=== PATIENT | female | born 1950 ===

== ENCOUNTER 2016-11-03 13:22 | Observation (INO) | payer MEDICARE, OTHER ==
[2016-11-03 13:25] VITALS: BMI 36.7
[2016-11-03 15:32] LABS: BASO # 0.1 K/uL (0.0-0.2); BASO % 0.7 % (0.0-2.0); HEMATOCRIT 39.8 % (34.0-47.0); LYMPH # 3.4 K/uL (1.0-4.3); LYMPH % 27.8 % (20.0-40.0); MEAN CELL VOLUME 78.8 fL (81.0-99.0); MEAN CORPUSCULAR HEMOGLOBIN 27.4 pg (27.0-31.0); MEAN CORPUSCULAR HGB CONC 34.8 g/dL (33.0-37.0); MEAN PLATELET VOLUME 7.8 fL (7.2-11.7); MONO # 0.9 K/uL (0.0-0.8); MONO % 7.2 % (0.0-10.0); RED CELL DISTRIBUTION WIDTH 13.9 % (11.5-14.5); WHITE BLOOD COUNT 12.2 K/uL (4.8-10.8)
[2016-11-03 15:40] LABS: INR 0.9
[2016-11-03 15:43] LABS: CHLORIDE 104 mmol/L (98-107); SODIUM 140 mmol/L (132-148)
[2016-11-03 15:44] LABS: POTASSIUM 4.3 mmol/L (3.6-5.2)
[2016-11-03 15:46] LABS: ALB/GLOB RATIO 1.4 (1.0-2.1); ALKALINE PHOSPHATASE 68 U/L (38-126); AST/SGOT 27 U/L (14-36); BILIRUBIN,TOTAL 0.5 mg/dL (0.2-1.3); CARBON DIOXIDE 23 mmol/L (22-30); GFR AFRICAN-AMERICAN > 60; TOTAL PROTEIN 7.1 g/dL (6.3-8.3)
[2016-11-03 15:47] LABS: ALT/SGPT 27 U/L (9-52); BLOOD UREA NITROGEN 14 mg/dL (7-17); CALCIUM 8.9 mg/dl (8.6-10.4); GLUCOSE,RANDOM 141 mg/dL (65-105)
--- NOTE | 2016-11-03 16:07 | RAD ---
HISTORY: chest pain COMPARISON: Chest x-ray performed 02/24/16 TECHNIQUE: Chest, one view. FINDINGS: Examination limited by habitus and hypoinflation. LUNGS: Mild interstitial prominence may reflect vascular crowding due to hypoinflation versus mild pulmonary venous congestion. Please note that chest x-ray has limited sensitivity for the detection of pulmonary masses. PLEURA: No significant pleural effusion identified. No definite pneumothorax . CARDIOVASCULAR: Borderline cardiomegaly. OSSEOUS STRUCTURES: No acute osseous abnormality identified. VISUALIZED UPPER ABDOMEN: Unremarkable. OTHER FINDINGS: None. IMPRESSION: Mild interstitial prominence may reflect vascular crowding due to hypoinflation versus mild pulmonary venous congestion. Correlate clinically.
--- NOTE | 2016-11-03 16:47 | C.PDOC ---
History Of Present Illness Pt c/o chest pain radiating to LUE. Time Seen by Provider: 11/03/16 14:15 Chief Complaint (Nursing): Chest Pain History Per: Patient, EMS Onset/Duration Of Symptoms: Hrs (last night/this morning) Current Symptoms Are (Timing): Better Severity: Moderate Quality: Pressure, "Pain" Associated Symptoms: Dyspnea Modifying Factors: Other Indicated Below Alleviating Factors: None Additional History Per: Prior Records Past Medical History Reviewed: Historical Data, Nursing Documentation, Vital Signs Vital Signs: Last Vital Signs Temp 98.2 F 11/03/16 14:56 Pulse 74 11/03/16 14:56 Resp 13 11/03/16 14:56 BP 132/79 11/03/16 16:39 Pulse Ox 95 11/03/16 14:56 - Medical History PMH: Asthma (DOESN'T USE INHALER MUCH), Diabetes, Gastritis, Hepatitis, HTN, Hypercholesterolemia, Hyperlipidemia, Hypothyroidism (NO MEDS), Migraine, Osteoporosis, Schizophrenia, Seizures (1X ) Surgical History: Appendectomy, Endoscopy - [facility] Procedures GROUP PSYCHOTHERAPY (07/02/15) INDIVIDUAL PSYCHOTHERAPY, COGNITIVE-BEHAVIORAL (07/02/15) Family History: States: Unknown Family Hx - Social History Hx Tobacco Use: No Hx Alcohol Use: No Hx Substance Use: No - Immunization History Hx Tetanus Toxoid Vaccination: No Hx Influenza Vaccination: No Hx Pneumococcal Vaccination: No Review Of Systems Except As Marked, All Systems Reviewed And Found Negative. Constitutional: Negative for: Fever Cardiovascular: Positive for: Chest Pain, Light Headedness Respiratory: Positive for: Shortness of Breath. Negative for: Hemoptysis Gastrointestinal: Negative for: Vomiting, Abdominal Pain Musculoskeletal: Positive for: Back Pain. Negative for: Neck Pain, Leg Pain Skin: Negative for: Rash Neurological: Negative for: Weakness, Numbness Physical Exam - Physical Exam Appears: Non-toxic, No Acute Distress Skin: Normal Color, Warm, Dry, No Rash Head: Atraumatic, Normacephalic Eye(s): bilateral: Normal Inspection, PERRL, EOMI Neck: Normal ROM, Supple Chest: Symmetrical, No Deformity, No Tenderness Cardiovascular: Rhythm Regular Respiratory: Normal Breath Sounds, No Accessory Muscle Use Gastrointestinal/Abdominal: Soft, No Tenderness Back: No CVA Tenderness Extremity: Normal ROM, No Calf Tenderness Neurological/Psych: Oriented x3, Normal Motor, Normal Sensation ED Course And Treatment - Laboratory Results Result Diagrams: 11/03/16 15:24 11/03/16 15:24 Lab Interpretation: No Acute Changes ECG: Interpreted By Me, Viewed By Me ECG Rhythm: Sinus Rhythm, ST/T Changes (T wave inversions in anterolateral leads.), Nonspecific Changes ECG Interpretation: Abnormal Rate From EC O2 Sat by Pulse Oximetry: 95 Pulse Ox Interpretation: Normal - Radiology CXR: Viewed By Me, Read By Radiologist CXR Interpretation: Yes: No Acute Disease - Physician Consult Information Physician Contacted: Goyo Yost (Card.) Outcome Of Conversation: He will consult. Progress - Interventions Interventions:: Observation, Oxygen - Medications Administered Oral: Aspirin (Pt took at home just BOOKS BINDER) - Data Reviewed Data Reviewed: Lab, Diagnostic imaging, EKG, Old records - Patient Status Patient status: Mostly improved - Continuity of Care Discussed patient case with:: Patient, ED Nurse, PMD Discussed pt. case with ada accommodation consultant/specialty: Cardiology Disposition Discussed With : Diamond Garcia Comment: He accepted pt on his service and wants Dr. Graff to be consulted. Doctor Will See Patient In The: Hospital Counseled Patient/Family Regarding: Studies Performed, Diagnosis - Disposition Disposition: HOSPITALIZED Disposition Time: 16:53 Condition: FAIR - Clinical Impression Clinical Impression: Chest pain, Acute coronary syndrome
[2016-11-03] MEDS: Enoxaparin 60 mg Syringe SC SCH (21:35)
[2016-11-03] MEDS: (Novolin R) Insulin Human Regular 100 units/ml vial SC SCH (22:05)
[2016-11-04 02:02] VITALS: RESP 20
[2016-11-04] MEDS: (Novolin R) Insulin Human Regular 100 units/ml vial SC SCH ×4 (07:23→21:33)
--- NOTE | 2016-11-04 07:33 | CON ---
DATE: REASON FOR CONSULTATION: Chest pain. HISTORY OF PRESENT ILLNESS: The patient is 66 years old female who has a history of hypertension, diabetes mellitus, and history of schizophrenia. The patient stated to me that she had few heart attacks with two cardiac catheterization, one in [facility] and one in [facility] last year and she had been on procedure; however, my review of old admissions from this year and last year reveals no cardiac procedure or intervention and not even a cardiology consult. The patient presents because of chest tightness. The patient denies any associated diaphoresis or shortness of breath. SOCIAL HISTORY: The patient is nonsmoker and nondrinker. MEDICATIONS: The patient was placed by me on aspirin 81 mg once a day, Crestor at 20 mg once a day, Lopressor 25 mg twice a day, therapeutic subcutaneous Lovenox at 60 mg twice a day. REVIEW OF SYSTEMS: No fever or chills. No vomiting. No diarrhea. No dizziness or syncope. No suicidal ideation. PHYSICAL EXAMINATION: GENERAL: The patient is an elderly female who does not appear to be in any distress. VITAL SIGNS: Blood pressure 118/69, heart rate 91, temperature 98.5 and respiration 20. HEENT: Normocephalic. NECK: No JVD. CHEST: Clear. HEART: S1 and S2 regular. ABDOMEN: Soft. EXTREMITIES: No edema. LABORATORY DATA: CBC: WBC is 12.2, hemoglobin 16.9, hematocrit 39.8, and platelet count 197,000. Chemistry: Sodium 140, potassium 4.3, chloride 104, CO2 23, glucose 141, BUN 14 and creatinine 0.7. One set of troponin is negative. PT, PTT and INR are within normal limit. EKG revealed a sinus rhythm with anterior ischemic T-wave changes, slightly worsened when compared to previous EKG's from 2016. Chest x-ray revealed cardiomegaly with mild CHF. ASSESSMENT: 1. Chest pain rule out myocardial infarction. 2. Rule out pulmonary infarction. 3. Hypertension and diabetes mellitus. 4. Questionable coronary artery disease with questionable coronary intervention in the past. 5. Radiographic evidence of congestive heart failure on the chest x-ray. RECOMMENDATIONS: Continue aspirin 81 mg once a day, Crestor 20 mg once a day, Lopressor 25 mg once a day, Lovenox of 60 mg subcutaneous twice a day. Monitor with EKGs and serial cardiac enzymes, obtain an echocardiogram, serum D-dimer and I will administer one dose of Lasix 40 mg IV push now. Goyo Yost MD
[2016-11-04] MEDS: Enoxaparin 60 mg Syringe SC SCH (09:42)
[2016-11-04] MEDS: Pantoprazole 40 mg EC Tab PO SCH (09:42)
--- NOTE | 2016-11-04 18:08 | CARD ---
APPROVED REPORT EXAM: Two-dimensional and M-mode echocardiogram with Doppler and color Doppler. Other Information Quality : Technically LimitedRhythm : NSR INDICATION Chest Pain RISK FACTORS Hypertension Diabetes 2D DIMENSIONS IVSd1.1 (0.7-1.1cm)LVDd5.2 (3.9-5.9cm) PWd1.0 (0.7-1.1cm)LVDs4.0 (2.5-4.0cm) FS (%) 22.4 %LVEF (%)44.9 (>50%) M-Mode DIMENSIONS RVDd2.74 (2.1-3.2cm)Left Atrium (MM)3.71 (2.5-4.0cm) IVSd1.18 (0.7-1.1cm)Aortic Root3.20 (2.2-3.7cm) LVDd4.38 (4.0-5.6cm)Aortic Cusp Exc.2.50 (1.5-2.0cm) PWd1.20 (0.7-1.1cm)FS (%) 44 % LVDs2.46 (2.0-3.8cm)LVEF (%)75 (>50%) Mitral Valve MV E Tujthpwl45.8cm/sMV A Eutwisxe00.9cm/sE/A ratio1.0 TDI E/Lateral E'0.0E/Medial E'0.0 Tricuspid Valve TR Peak Osgeqril74nj/sTR Peak Gr.5mxNzQAOR4jhZj LEFT VENTRICLE The left ventricle is normal size. There is normal left ventricular wall thickness. The left ventricular systolic function is normal. The left ventricular ejection fraction is within the normal range. There is normal LV segmental wall motion. The left ventricular diastolic function is normal. RIGHT VENTRICLE The right ventricle is normal size. The right ventricular systolic function is normal. ATRIA The left atrium size is normal. The right atrium size is normal. AORTIC VALVE The aortic valve is normal in structure. No aortic regurgitation is present. MITRAL VALVE The mitral valve is normal in structure. There is no mitral valve regurgitation noted. TRICUSPID VALVE The tricuspid valve is normal in structure. PULMONIC VALVE The pulmonic valve is not well visualized. GREAT VESSELS The aortic root is normal in size. The IVC was not visualized. PERICARDIAL EFFUSION There is no pericardial effusion. <Conclusion> TECHNICALLY DIFFICULT STUDY DUE TO POOR ACOUSTIC WINDOWS Normal bi-ventricular function. no gross valvular abnormality or pericardial effusiion.
--- NOTE | 2016-11-04 18:58 | PN ---
SUBJECTIVE: The patient denied any chest pain. She is ambulating with physical therapy. PHYSICAL EXAMINATION VITAL SIGNS: Blood pressure 128/73, heart rate 64, temperature 98.1 and respiration 20. HEENT: Normocephalic. CHEST: Clear. HEART: S1 and S2 regular. EXTREMITIES: No edema. LABORATORY DATA: A total of three troponins are within normal limit. ASSESSMENT AND PLAN: 1. Chest pain, myocardial infarction is ruled out. 2. Uncontrolled diabetes mellitus. 3. Depression. CONDITIONS: Continue aspirin 81 mg once a day, Lopressor 25 mg once a day, change Lovenox to 50 mg once a day, continue Seroquel. D-dimer study are within normal limits. I will review the echocardiograph study that was performed today. Goyo Yost MD
--- NOTE | 2016-11-04 23:59 | HP ---
HISTORY OF PRESENT ILLNESS: The patient is a 66 years old female with history of multiple medical problems, presented to the emergency room with chest pain which is retrosternal and pressure like. The patient was evaluated in the emergency room and admitted for further management. The patient denied to have any previous similar symptoms. Pain happened while the patient was at rest. Pain was not associated with any shortness of breath or palpitation or any other cardiac symptoms. OTHER REVIEW OF SYSTEMS: Negative. ALLERGIES: THE PATIENT HAS ALLERGY TO PENICILLIN. PAST MEDICAL HISTORY: Hypertension, type 2 diabetes mellitus, and hypercholesterolemia. SOCIAL HISTORY: No history of smoking, EtOH, or substance abuse. FAMILY HISTORY: Noncontributory. HOME MEDICATIONS: Seroquel 100 mg at bedtime and 25 mg in the morning, Relafen 500 mg twice a day, simvastatin 20 mg daily, carvedilol 6.25 mg twice a day, omeprazole 40 mg daily, aspirin 81 mg daily, and metformin 850 mg twice a day. PHYSICAL EXAMINATION: GENERAL: The patient is in bed, comfortable, not in any cardiopulmonary distress at the time of this examination. VITAL SIGNS: Blood pressure 128/73, temperature 98.1, respiratory rate 20, and pulse 64. HEENT: Pupils equal and reactive to light. Normal appearing mucosa of the conjunctivae, oropharynx, and nasal membrane mucosa. NECK: Supple. No JVD. No carotid bruit. No lymph node. No thyromegaly. CHEST AND LUNGS: Bilateral symmetrical expansion. Good air exchange. No rales. No rhonchi. CARDIOVASCULAR SYSTEM: PMI not localized. S1 and S2. No additional sounds. ABDOMEN: Normoactive bowel sounds. No tenderness. No organomegaly. No masses. EXTREMITIES: No cyanosis. No clubbing. No edema. CENTRAL NERVOUS SYSTEM: Alert, awake, oriented x3. No neurological deficits could be appreciated. ASSESSMENT: 1. Chest pain, myocardial infarction is ruled out by negative cardiac enzymes. 2. Type 2 diabetes mellitus with hyperglycemia. 3. History of bipolar disorder. PLAN: The patient was for echocardiogram and cardiology consultation and will follow the recommendations. Resume the patient's home medications. Accu-Checks with insulin coverage as needed. Diamond Garcia MD [facility] # [id number]
[2016-11-05] MEDS: (Novolin R) Insulin Human Regular 100 units/ml vial SC SCH ×4 (07:19→22:19)
[2016-11-05] MEDS: Pantoprazole 40 mg EC Tab PO SCH (09:12)
[2016-11-05] MEDS: Enoxaparin 30 mg Syringe SC SCH (09:12)
--- NOTE | 2016-11-05 17:41 | CP.PCM.PN ---
Subjective - Date & Time of Evaluation Date of Evaluation: 11/05/16 Time of Evaluation: 17:40 - Subjective Subjective: DISCUSSED PLAN WITH DR. RODRIGUEZ; PT CLEARED FOR D/C CARDIAC LACEY. FURTHER TESTING TO BE DONE ON OUTPATIENT BASIS PER DR. RODRIGUEZ. PT TO F/U WITH HIM IN THE OFFICE WITHIN [address] PARK MADE AWARE OF CARDIAC CLEARANCE AND OK TO D/C. PT WOULD LIKE TO SPEAK W DR. PARK BEFORE SHE IS D/C FROM HOSPITAL. I NOTIFIED Nikolai PARK OF THIS. ALL D/C PAPERWORK AND MED REC DONE IN PREPARATION FOR PT TO GO HOME. NO FURTHER ORDERS. Objective - Vital Signs/Intake and Output Vital Signs (last 24 hours): Temp Pulse Resp BP Pulse Ox 100 F H 69 20 129/83 96 11/05/16 15:00 11/05/16 15:00 11/05/16 15:00 11/05/16 15:00 11/05/16 15:00 Intake and Output: 11/05/16 11/05/16 06:59 18:59 Intake Total 400 Balance 400 - Medications Medications: Current Medications Acetaminophen (Tylenol 325mg Tab) 650 mg PO Q6 PRN PRN Reason: Pain, moderate (4-7) Last Admin: 11/04/16 22:24 Dose: 650 mg Aspirin (Aspirin Chewable) 81 mg PO DAILY [facility] Last Admin: 11/05/16 09:12 Dose: 81 mg Enoxaparin Sodium (Lovenox) 30 mg SC DAILY [facility] Last Admin: 11/05/16 09:12 Dose: 30 mg Insulin Human Regular (Novolin R) 0 unit SC [facility] PRN Reason: Protocol Last Admin: 11/05/16 17:30 Dose: Not Given Metformin HCl (Glucophage) 850 mg PO BID [facility] Last Admin: 11/05/16 09:11 Dose: 850 mg Metoprolol Tartrate (Lopressor) 25 mg PO BID [facility] Last Admin: 11/05/16 09:14 Dose: 25 mg Pantoprazole Sodium (Protonix Ec Tab) 40 mg PO DAILY [facility] Last Admin: 11/05/16 09:12 Dose: 40 mg Quetiapine Fumarate (Seroquel) 100 mg PO HS [facility] Last Admin: 11/04/16 21:33 Dose: 100 mg Quetiapine Fumarate (Seroquel) 25 mg PO DAILY [facility] Last Admin: 11/04/16 16:16 Dose: 25 mg Rosuvastatin Calcium (Crestor) 20 mg PO HS [facility] Last Admin: 11/04/16 21:33 Dose: 20 mg - Labs Labs: PT 10.5 SECONDS (9.7-12.2) 11/03/16 15:24 INR 0.9 11/03/16 15:24 APTT 29 SECONDS (21-34) 11/03/16 15:24
[2016-11-06 00:41] VITALS: TEMP 98.1; O2SAT 95
[2016-11-06] MEDS: (Novolin R) Insulin Human Regular 100 units/ml vial SC SCH (07:20)
[2016-11-06 08:21] VITALS: PULSE 70
[2016-11-06] MEDS: Pantoprazole 40 mg EC Tab PO SCH (09:48)
[2016-11-06] MEDS: Enoxaparin 30 mg Syringe SC SCH (09:48)
[2016-11-06 09:51] VITALS: BP 145/86
--- NOTE | 2016-11-07 05:56 | DS ---
REASON FOR ADMISSION: This is a 66 years old female with history of multiple medical problems presented to emergency room with symptoms of chest pain, radiates to the left upper arm and back. COURSE OF HOSPITALIZATION: The patient was evaluated in the emergency room and admitted for further management. The patient had cardiology consultation done by Dr. Yost. Myocardial infarction was ruled out and patient was cleared by cardiology for discharge and she was discharged home to have stress test as an outpatient and to treat left upper back pain and shoulder pain as musculoskeletal at this point. FINAL DIAGNOSES: 1. Chest pain less likely to be cardiac, most probably musculoskeletal. 2. Hypertension. 3. Type 2 diabetes mellitus. PLAN: We will address all risk factors for atherosclerosis and we will refer to cardiology for outpatient stress test. Continue aspirin and current medications. [facility] MD Jose
== END 2016-11-06 10:34 | disposition home or self-care (01) ==
LOC: C.ER 13:22 → C.6T 16:55
PROVIDERS: ADMIT Internal Medicine; ATTEND Internal Medicine
DX: R07.9 Chest pain, unspecified (principal); J45.909 Unspecified asthma, uncomplicated; I11.0 Hypertensive heart disease with heart failure; I50.9 Heart failure, unspecified; F32.9 Major depressive disorder, single episode, unspecified; E11.65 Type 2 diabetes mellitus with hyperglycemia; Z88.0 Allergy status to penicillin; Z86.59 Personal history of other mental and behavioral disorders
CPT/HCPCS: 36415; 71010; 80053; 82948; 83880; 84484; 85025; 85378; 85610; 85730; 93005; 93306; 96372; 96374; 97116; 97162; 99284; G0378; G8978; G8979; J1650; J1940

== ENCOUNTER 2017-03-17 03:17 | Emergency (ER) | payer OTHER ==
[2017-03-17 03:17] VITALS: BMI 36.7
[2017-03-17] MEDS ORDERED: Sodium Chloride 0.9% 1,000 ML IV ONE (04:02)
--- NOTE | 2017-03-17 04:09 | C.PDOC ---
History Of Present Illness 66 year old female with PMHx of DM, HTN presents to the ED c/o lower abdominal pain radiating towards her back and down her right leg that started at 23:00 tonight. Patient states her pain worsens with movement and feel a little nauseous. Patient denies vomit, diarrhea, constipation, dysuria, hematuria, weakness, numbness, fever, chills. Time Seen by Provider: 03/17/17 03:23 Chief Complaint (Nursing): Abdominal Pain History Per: Patient History/Exam Limitations: no limitations Onset/Duration Of Symptoms: Hrs Current Symptoms Are (Timing): Still Present Location Of Pain/Discomfort: RLQ Radiation Of Pain To:: Back Quality Of Discomfort: "Pain" Associated Symptoms: Nausea, Back Pain Exacerbating Factors: Movement Alleviating Factors: None Recent travel outside of the [place]: No Abnormal Vaginal Bleeding: No Past Medical History Reviewed: Historical Data, Nursing Documentation, Vital Signs Vital Signs: Last Vital Signs Temp 98.7 F 03/17/17 03:27 Pulse 80 03/17/17 03:27 Resp 12 03/17/17 03:27 BP 157/98 H 03/17/17 03:27 Pulse Ox 96 03/17/17 07:09 - Medical History PMH: Arthritis, Asthma (DOESN'T USE INHALER MUCH), Diabetes, Gastritis, Hepatitis, HTN, Hypercholesterolemia, Hyperlipidemia, Hypothyroidism (NO MEDS), Migraine, Osteoporosis, Schizophrenia, Seizures (1X ) Denies: Chronic Kidney Disease Surgical History: Appendectomy, Endoscopy - [facility] Procedures GROUP PSYCHOTHERAPY (07/02/15) INDIVIDUAL PSYCHOTHERAPY, COGNITIVE-BEHAVIORAL (07/02/15) Family History: States: Unknown Family Hx - Social History Hx Tobacco Use: No Hx Alcohol Use: No Hx Substance Use: No - Immunization History Hx Tetanus Toxoid Vaccination: No Hx Influenza Vaccination: No Hx Pneumococcal Vaccination: No Review Of Systems Except As Marked, All Systems Reviewed And Found Negative. Constitutional: Negative for: Fever, Chills Cardiovascular: Negative for: Chest Pain Respiratory: Negative for: Cough, Shortness of Breath Gastrointestinal: Positive for: Nausea, Abdominal Pain. Negative for: Vomiting , Diarrhea Genitourinary: Negative for: Dysuria, Hematuria, Vaginal Discharge, Vaginal Bleeding Musculoskeletal: Positive for: Back Pain Skin: Negative for: Rash Neurological: Negative for: Weakness, Numbness Physical Exam - Physical Exam Appears: Non-toxic, No Acute Distress Skin: Normal Color, Warm, Dry Head: Atraumatic, Normacephalic Eye(s): bilateral: Normal Inspection Nose: No Discharge, No Deformity Oral Mucosa: Moist Neck: Normal ROM, Supple Chest: Symmetrical Cardiovascular: Rhythm Regular, No Murmur Respiratory: Normal Breath Sounds (congested), No Rales, No Rhonchi, No Wheezing Gastrointestinal/Abdominal: Soft, Tenderness (lower abdomen), No Guarding, No Rebound, Other (obese) Extremity: Normal ROM, No Pedal Edema, No Calf Tenderness, No Deformity, No Swelling Neurological/Psych: Oriented x3, Normal Speech, Normal Cognition Gait: Steady ED Course And Treatment - Laboratory Results Result Diagrams: 03/17/17 04:22 03/17/17 04:22 O2 Sat by Pulse Oximetry: 96 (On RA) Pulse Ox Interpretation: Normal Medical Decision Making Medical Decision Making: Plan: * labs * pepcid 20 mg IVP * IV fluids * toradol 30 mg IVP * zofran 4 mg IVP * Urine culture * UA Disposition - Disposition Disposition Time: 07:08 Condition: FAIR Forms: [employer] (Welsh) - Clinical Impression Clinical Impression: Abdominal pain - PA / POT HOLDER BINDER / Resident Statement MD/DO has reviewed & agrees with the documentation as recorded. - Scribe Statement The provider has reviewed the documentation as recorded by the Scribe Tray Vivar All medical record entries made by the Scribe were at my direction and personally dictated by me. I have reviewed the chart and agree that the record accurately reflects my personal performance of the history, physical exam, medical decision making, and the department course for this patient. I have also personally directed, reviewed, and agree with the discharge instructions and disposition. Physician Patient Turnover Patient Signed Over To: Lalitha Calle Handoff Comments: Pending CT scan
[2017-03-17] MEDS ORDERED: Sodium Chloride 0.9% 1,000 ML ONE (04:22)
[2017-03-17 04:26] LABS: BASO # 0.1 K/uL (0.0-0.2); BASO % 0.9 % (0.0-2.0); HEMOGLOBIN 13.6 g/dL (11.0-16.0); LYMPH # 3.7 K/uL (1.0-4.3); LYMPH % 32.4 % (20.0-40.0); MEAN CELL VOLUME 78.1 fL (81.0-99.0); MEAN CORPUSCULAR HEMOGLOBIN 27.5 pg (27.0-31.0); MEAN CORPUSCULAR HGB CONC 35.3 g/dL (33.0-37.0); MEAN PLATELET VOLUME 7.8 fL (7.2-11.7); MONO # 0.9 K/uL (0.0-0.8); MONO % 7.5 % (0.0-10.0); NEUT # 6.8 K/uL (1.8-7.0); NEUT % 59.2 % (50.0-75.0); NRBC % 0.1 % (0.0-2.0); RBC 4.92 Mil/uL (3.80-5.20); WHITE BLOOD COUNT 11.5 K/uL (4.8-10.8)
[2017-03-17 04:42] LABS: SQUAMOUS EPITHIAL 2 /hpf (0-5); URINE BACTERIA RARE (<OCC); URINE BILIRUBIN NEGATIVE (NEGATIVE); URINE BLOOD 2+ (NEGATIVE); URINE CLARITY Clear (Clear); URINE COLOR Yellow (YELLOW); URINE GLUCOSE (UA) NORMAL (Normal); URINE LEUKOCYTE ESTERASE NEG Leu/uL (Negative); URINE NITRATE NEGATIVE (NEGATIVE); URINE PROTEIN 1+ mg/dL (NEGATIVE); URINE UROBILINOGEN NORMAL mg/dL (0.2-1.0)
[2017-03-17 05:05] LABS: ALB/GLOB RATIO 1.2 (1.0-2.1); ALBUMIN 3.8 g/dL (3.5-5.0); AST/SGOT 25 U/L (14-36); BLOOD UREA NITROGEN 9 mg/dL (7-17); CALCIUM 8.6 mg/dl (8.6-10.4); GFR AFRICAN-AMERICAN > 60; GFR NON-AFRICAN AMERICAN > 60
[2017-03-17 05:12] LABS: ALT/SGPT 22 U/L (9-52); LIPASE 159 U/L (23-300)
[2017-03-17] MEDS ORDERED: Iohexol 350mg/ml 100 ML ONE (06:35)
[2017-03-17 07:53] VITALS: PULSE 63; TEMP 98.3
--- NOTE | 2017-03-17 09:50 | CT ---
PROCEDURE: CT Abdomen and Pelvis with contrast HISTORY: RLQ abd pain COMPARISON: None. TECHNIQUE: Contrast dose: Omnipaque 350, 100 cc Radiation dose: Total exam DLP = 987.99 mGy-cm. This CT exam was performed using one or more of the following dose reduction techniques: Automated exposure control, adjustment of the mA and/or kV according to patient size, and/or use of iterative reconstruction technique. FINDINGS: LOWER THORAX: Cardiomegaly is noted. No pleural or pericardial effusion identified however. LIVER: Hepatic steatosis identified without focal mass evident. The liver appears upper limits normal size. GALLBLADDER AND BILE DUCTS: Moderate gallbladder distention is appreciated with the gallbladder otherwise unremarkable. PANCREAS: Unremarkable. No gross lesion or ductal dilatation. SPLEEN: Unremarkable. ADRENALS: Unremarkable. No mass. KIDNEYS AND URETERS: Left kidney appears unremarkable. There is mild right hydronephrosis and hydroureter without radiodense urolithiasis appreciable throughout the right ureter. Numerous phleboliths are identified in the inferior pelvis soft tissues inferior to the urinary bladder. Consider possible distal right ureteral stricture or loosing calculus obstructing the right ureter. Additionally, this could reflect residual mild hydronephrosis from an expelled calculus. Thickening of the right ureteral wall may indicate infectious or inflammatory change. VASCULATURE: Unremarkable. No aortic aneurysm. BOWEL: The stomach is collapsed. There is no bowel obstruction appreciated. Diffuse colonic diverticular changes are appreciated greater the left and right hemicolon without definite acute changes related. APPENDIX: The appendix not clearly identified however there is no CT pattern to suggest appendicitis at this time. PERITONEUM: Unremarkable. No free fluid. No free air. LYMPH NODES: Unremarkable. No enlarged lymph nodes. BLADDER: Moderately distended with smooth walled urinary bladder is encountered. REPRODUCTIVE: Prior hysterectomy suggested. Clinically correlate. BONES: No acute fracture. OTHER FINDINGS: None. IMPRESSION: Mild right hydroureteronephrosis is appreciated without radiodense ureteral calculus or urinary bladder calculus evident. Though residual hydronephrosis from expelled calculus is possible, other etiologies including distal right ureteral stricture or or loosing calculus are not excluded and further clinical correlation is advised. Thickening of the ureter right ureter wall may reflect infectious or inflammatory change. No CT evidence to suggest appendicitis however the appendix is not identified in this examination. Clinically correlate further. Concordant preliminary report from [facility], 03/17/2017.
[2017-03-17 10:32] VITALS: BP 134/86; RESP 16; O2SAT 98
== END 2017-03-17 11:25 | disposition home or self-care (01) ==
LOC: C.ER 03:17
DX: R10.31 Right lower quadrant pain (principal)
CPT/HCPCS: 74177; 80053; 81001; 83690; 85025; 87086; 96374; 96375; 99285; J1885; J2405; J7040; Q9967

== ENCOUNTER 2017-03-20 14:19 | Inpatient (IN) | payer OTHER ==
[2017-03-20 14:20] VITALS: BMI 36.7
[2017-03-20] MEDS ORDERED: Sodium Chloride 0.9% 1,000 ML IV ONE (16:28)
--- NOTE | 2017-03-20 16:43 | C.PDOC ---
History Of Present Illness <Juan Daniel Dunlap - Last Filed: 03/20/17 23:38> <Ho Heard - Last Filed: 03/24/17 13:10> 66 y/o female, with history of morbid obesity and diabetes,presents to the ER for evaluation of persistent right renal calculi. Patient states that she was seen in [facility] [address] was performed showing hydronephrosis with recently passed kidney stones vs stenosis. Patient states that she still has persistent pain sent by pmd for admission. . (Ho Heard) <Juan Daniel Dunlap - Last Filed: 03/20/17 23:38> History Per: Patient History/Exam Limitations: no limitations Onset/Duration Of Symptoms: Days Current Symptoms Are (Timing): Still Present Severity: Moderate <Ho Heard - Last Filed: 03/24/17 13:10> Time Seen by Provider: 03/20/17 16:23 Chief Complaint (Nursing): Female Genitourinary Past Medical History Reviewed: Historical Data, Nursing Documentation, Vital Signs - Medical History PMH: Arthritis, Asthma (DOESN'T USE INHALER MUCH), Diabetes, Gastritis, Hepatitis, HTN, Hypercholesterolemia, Hyperlipidemia, Hypothyroidism (NO MEDS), Migraine, Osteoporosis, Schizophrenia, Seizures (1X ) Denies: Chronic Kidney Disease Surgical History: Appendectomy, Endoscopy Family History: States: No Known Family Hx - Social History Hx Tobacco Use: No Hx Alcohol Use: No Hx Substance Use: No - Immunization History Hx Tetanus Toxoid Vaccination: No Hx Influenza Vaccination: No Hx Pneumococcal Vaccination: No <Ho Heard - Last Filed: 03/24/17 13:10> Vital Signs: Last Vital Signs Temp 98.5 F 03/23/17 16:39 Pulse 68 03/23/17 16:39 Resp 20 03/23/17 16:39 BP 110/55 L 03/23/17 16:39 Pulse Ox 95 03/23/17 16:39 - [facility] Procedures GROUP PSYCHOTHERAPY (07/02/15) INDIVIDUAL PSYCHOTHERAPY, COGNITIVE-BEHAVIORAL (07/02/15) Review Of Systems Except As Marked, All Systems Reviewed And Found Negative. Gastrointestinal: Positive for: Other (right renal calculi). Negative for: Nausea, Vomiting, Diarrhea <Ho Heard - Last Filed: 03/24/17 13:10> Physical Exam - Physical Exam Appears: Non-toxic, No Acute Distress, Other (morbidly obese) Skin: Normal Color, Warm Head: Atraumatic, Normacephalic Eye(s): bilateral: Normal Inspection, PERRL Nose: Normal Oral Mucosa: Moist Neck: Supple Chest: Symmetrical Cardiovascular: Rhythm Regular Respiratory: Normal Breath Sounds, No Accessory Muscle Use, No Rales, No Rhonchi , No Wheezing Gastrointestinal/Abdominal: Normal Exam, Soft, Tenderness (right side flank tenderness), No Guarding, No Rebound Extremity: Normal ROM Neurological/Psych: Oriented x3, Normal Speech, Normal Cognition, Normal Motor, Normal Sensation <Ho Heard - Last Filed: 03/24/17 13:10> ED Course And Treatment - Laboratory Results Result Diagrams: 03/20/17 18:32 03/20/17 18:32 Progress Note: 2330: d/w Dr. Awa Lofton- re STAT renal consult for mild R renal hydroureter/nephrosis, noted on CT 03/17 and today on renal US. Pt admitted. labs and urine wnl. by reports and labs pt wnl and stable. Pt may be safely consulted in AM by Urology <Juan Daniel Dunlap - Last Filed: 03/20/17 23:38> - Laboratory Results Result Diagrams: 03/22/17 11:44 03/22/17 04:00 O2 Sat by Pulse Oximetry: 98 (RA) Pulse Ox Interpretation: Normal <Ho Heard - Last Filed: 03/24/17 13:10> Medical Decision Making <Juan Daniel Dunlap - Last Filed: 03/20/17 23:38> <Ho Heard - Last Filed: 03/24/17 13:10> Medical Decision Making: Plan: --Labs --Urinalysis --US-Abdomen sent by dr garcia for admission. accepted to med surg. pt with possible recently passed stone vs stenosis with mild right hydro. us repeated shows mild hydro. dr garcia sent pt for admission, request dr lofton consult. (Ho Heard) Disposition <Juan Daniel Dunlap - Last Filed: 03/20/17 23:38> - Disposition Disposition Time: 07:00 <Ho Heard - Last Filed: 03/24/17 13:10> - Disposition Disposition: HOSPITALIZED Condition: STABLE - Clinical Impression Clinical Impression: Hydronephrosis, Flank pain <Juan Daniel Dunlap - Last Filed: 03/20/17 23:38> - Scribe Statement The provider has reviewed the documentation as recorded by the Scribe <Ho Heard - Last Filed: 03/24/17 13:10> - Scribe Statement Refugio Ware (Ho Heard) Provider Attestation: All medical record entries made by the Scribe were at my direction and personally dictated by me. I have reviewed the chart and agree that the record accurately reflects my personal performance of the history, physical exam, medical decision making, and the department course for this patient. I have also personally directed, reviewed, and agree with the discharge instructions and disposition. (Ho Heard) Decision To Admit <Juan Daniel Dunlap - Last Filed: 03/20/17 23:38> - Pt Status Changed To: Hospital Disposition Of: Observation - . Bed Request Type: Regular Admitting Physician: Diamond Garcia <Ho Heard - Last Filed: 03/24/17 13:10> - . Patient Diagnosis: Hydronephrosis, Flank pain
--- NOTE | 2017-03-20 17:49 | US ---
HISTORY: right flank pain COMPARISON: CT abdomen pelvis with IV contrast performed 03/17/17 TECHNIQUE: Sonographic evaluation of the abdomen. FINDINGS: LIVER: Measures 16.3 cm in sagittal dimension. Echogenic liver may be seen in setting of hepatic parenchymal disease or fatty infiltration. No focal hepatic mass identified. The main portal vein appears patent with normal directional flow. No intrahepatic bile duct dilatation. GALLBLADDER: No gallstones. No gallbladder wall thickening. Negative sonographic Anne's sign as assessed by the mold checker. COMMON BILE DUCT: Measures 3 mm. PANCREAS: Not well visualized. RIGHT KIDNEY: Measures 11.3 x 4.4 x 4.8 cm. Mild hydronephrosis. No obstructing calculus identified. LEFT KIDNEY: Measures 11.1 x 5.0 x 4.9cm. No obstructing calculus or hydronephrosis identified. SPLEEN: Measures approximately 8.0 cm. AORTA: Limited views appear unremarkable. IVC: Not well-visualized. OTHER FINDINGS: None. IMPRESSION: Echogenic liver may be seen in setting of hepatic parenchymal disease or fatty infiltration. Mild right-sided hydronephrosis.
[2017-03-20 18:37] LABS: BASO # 0.1 K/uL (0.0-0.2); BASO % 0.6 % (0.0-2.0); HEMOGLOBIN 14.3 g/dL (11.0-16.0); LYMPH # 4.1 K/uL (1.0-4.3); LYMPH % 37.7 % (20.0-40.0); MEAN CELL VOLUME 78.9 fL (81.0-99.0); MEAN CORPUSCULAR HEMOGLOBIN 27.5 pg (27.0-31.0); MEAN CORPUSCULAR HGB CONC 34.9 g/dL (33.0-37.0); MEAN PLATELET VOLUME 7.7 fL (7.2-11.7); MONO # 0.7 K/uL (0.0-0.8); MONO % 6.2 % (0.0-10.0); NEUT % 55.5 % (50.0-75.0); NRBC % 0.2 % (0.0-2.0); RBC 5.18 Mil/uL (3.80-5.20); RED CELL DISTRIBUTION WIDTH 14.1 % (11.5-14.5); WHITE BLOOD COUNT 10.8 K/uL (4.8-10.8)
[2017-03-20 18:45] LABS: PROTHROMBIN TIME 11.1 SECONDS (9.7-12.2)
[2017-03-20] MEDS ORDERED: Sodium Chloride 0.9% 1,000 ML ONE (18:51)
[2017-03-20 18:58] LABS: ALB/GLOB RATIO 1.3 (1.0-2.1); ALBUMIN 4.1 g/dL (3.5-5.0); ALT/SGPT 24 U/L (9-52); AST/SGOT 27 U/L (14-36); BLOOD UREA NITROGEN 9 mg/dL (7-17); CALCIUM 9.3 mg/dl (8.6-10.4); GFR AFRICAN-AMERICAN > 60; GFR NON-AFRICAN AMERICAN > 60; LIPASE 191 U/L (23-300)
[2017-03-20 19:24] LABS: SQUAMOUS EPITHIAL 1 /hpf (0-5); URINE BACTERIA FEW (<OCC); URINE BILIRUBIN NEGATIVE (NEGATIVE); URINE BLOOD NEGATIVE (NEGATIVE); URINE CLARITY Clear (Clear); URINE COLOR Straw (YELLOW); URINE GLUCOSE (UA) NORMAL (Normal); URINE LEUKOCYTE ESTERASE 1+ Leu/uL (Negative); URINE NITRATE NEGATIVE (NEGATIVE); URINE PROTEIN NEGATIVE (NEGATIVE); URINE UROBILINOGEN NORMAL mg/dL (0.2-1.0)
[2017-03-20] MEDS ORDERED: cefTRIAXone IV 1 gm in Dextros 1 GM in Dextrose 5% In Water 50 ML IVPB STA (23:52)
[2017-03-21] MEDS: Ciprofloxacin 400mg/200ml D5W 400 MG/200 ML BAG IVPB SCH ×3 (00:06→23:50)
[2017-03-21] MEDS: Sodium Chloride 0.9% 1,000 ML IV SCH ×6 (00:07→23:56)
[2017-03-21 00:50] VITALS: RESP 20
[2017-03-21] MEDS: (Novolog) Insulin Aspart, Recombinant 100 u/ml 10 ml vial SC SCH ×4 (08:04→21:35)
[2017-03-21] MEDS ORDERED: Home Med 1 UNIT (Simvastatin [Simvastatin] 1 TAB) PO SCH (10:00)
[2017-03-21] MEDS ORDERED: cefTRIAXone IV 1 gm in Dextros 1 GM in Dextrose 5% In Water 50 ML IVPB SCH (10:00)
[2017-03-21] MEDS ORDERED: NABUMETONE 500 MG PO SCH (10:00)
--- NOTE | 2017-03-21 10:26 | CP.PCM.CON ---
Past Patient History - Infectious Disease Hx of Infectious Diseases: None - Tetanus Immunizations Tetanus Immunization: Unknown - Past Medical History & Family History Past Medical History?: Yes - Past Social History Smoking Status: Never Smoked - CARDIAC Hx Hypercholesterolemia: Yes Hx Hypertension: Yes - PULMONARY Hx Asthma: Yes (DOESN'T USE INHALER MUCH) - NEUROLOGICAL Hx Migraine: Yes Hx Seizures: Yes (1X ) - HEENT Hx HEENT Problems: Yes Hx Cataracts: Yes (BOTH) Hx Glaucoma: Yes Other/Comment: THYROID NODULE - RENAL Hx Chronic Kidney Disease: No - ENDOCRINE/METABOLIC Hx Hypothyroidism: Yes (NO MEDS) - INTEGUMENTARY Hx Dermatological Problems: No - MUSCULOSKELETAL/RHEUMATOLOGICAL Hx Arthritis: Yes Hx Osteoporosis: Yes - GASTROINTESTINAL Hx Gastritis: Yes - PSYCHIATRIC Hx Schizophrenia: Yes Hx Substance Use: No - SURGICAL HISTORY Hx Appendectomy: Yes - ANESTHESIA Hx Anesthesia: Yes Hx Anesthesia Reactions: No Hx Malignant Hyperthermia: No Meds Allergies/Adverse Reactions: Allergies Allergy/AdvReac Type Severity Reaction Status Date / Time Penicillins Allergy RASH Verified 03/17/17 03:30 - Medications Medications: Current Medications Aspirin (Aspirin Chewable) 81 mg PO DAILY [facility] Carvedilol (Coreg) 6.25 mg PO BID [facility] Home Med (Nabumetone) 500 mg PO BID [facility] Sodium Chloride (Sodium Chloride 0.9%) 1,000 mls @ 125 mls/hr IV .Q8H [facility] Last Admin: 03/21/17 08:04 Dose: Not Given Ciprofloxacin (Cipro 400mg/200ml Dsw) 400 mg in 200 mls @ 133 mls/hr IVPB Q12H [facility] Last Admin: 03/21/17 00:06 Dose: 133 mls/hr Insulin Aspart (Novolog) 0 unit SC ACHS [facility] PRN Reason: Protocol Last Admin: 03/21/17 08:04 Dose: Not Given Metformin HCl (Glucophage) 850 mg PO BID [facility] Morphine Sulfate (Morphine) 2 mg IVP Q4 PRN PRN Reason: Pain, moderate (4-7) Last Admin: 03/21/17 01:30 Dose: 2 mg Pantoprazole Sodium (Protonix Ec Tab) 40 mg PO DAILY [facility] Pneumococcal Polyvalent Vaccine (Pneumovax 23 Vaccine) 0.5 ml IM .ONCE ONE Stop: 03/22/17 10:01 Quetiapine Fumarate (Seroquel) 100 mg PO HS [facility] Rosuvastatin Calcium (Crestor) 5 mg PO HS [facility] Results - Vital Signs Recent Vital Signs: Last Vital Signs Temp 97.6 F 03/21/17 08:06 Pulse 61 03/21/17 08:06 Resp 20 03/21/17 08:06 BP 129/85 03/21/17 08:06 Pulse Ox 97 03/21/17 08:06 - Labs Result Diagrams: 03/20/17 18:32 03/20/17 18:32 Labs: Laboratory Results - last 24 hr 03/20/17 03/20/17 03/20/17 18:32 18:32 18:32 WBC 10.8 RBC 5.18 Hgb 14.3 Hct 40.9 MCV 78.9 L MCH 27.5 MCHC 34.9 RDW 14.1 Plt Count 219 MPV 7.7 Neut % (Auto) 55.5 Lymph % (Auto) 37.7 [place] % (Auto) 6.2 Eos % (Auto) 0.0 Baso % (Auto) 0.6 Neut # 6.0 Lymph # 4.1 [place] # 0.7 Eos # 0.0 Baso # 0.1 PT 11.1 INR 1.0 APTT 29 Sodium 138 Potassium 4.2 Chloride 102 Carbon Dioxide 24 Anion Gap 16 BUN 9 Creatinine 0.6 L Est GFR ( Amer) > 60 Est GFR (Non-Af Amer) > 60 POC Glucose (mg/dL) Random Glucose 78 Calcium 9.3 Total Bilirubin 0.5 AST 27 ALT 24 Alkaline Phosphatase 63 Total Protein 7.4 Albumin 4.1 Globulin 3.3 Albumin/Globulin Ratio 1.3 Lipase 191 Urine Color Urine Clarity Urine pH Ur Specific [place] Urine Protein Urine Glucose (UA) Urine Ketones Urine Blood Urine Nitrate Urine Bilirubin Urine Urobilinogen Ur Leukocyte Esterase Urine WBC (Auto) Urine RBC (Auto) Ur Squamous Epith Cells Urine Bacteria 03/20/17 03/21/17 19:14 07:14 WBC RBC Hgb Hct MCV MCH MCHC RDW Plt Count MPV Neut % (Auto) Lymph % (Auto) [place] % (Auto) Eos % (Auto) Baso % (Auto) Neut # Lymph # [place] # Eos # Baso # PT INR APTT Sodium Potassium Chloride Carbon Dioxide Anion Gap BUN Creatinine Est GFR ( Amer) Est GFR (Non-Af Amer) POC Glucose (mg/dL) 88 Random Glucose Calcium Total Bilirubin AST ALT Alkaline Phosphatase Total Protein Albumin Globulin Albumin/Globulin Ratio Lipase Urine Color Straw Urine Clarity Clear Urine pH 6.0 Ur Specific [place] 1.010 Urine Protein Negative Urine Glucose (UA) Normal Urine Ketones Negative Urine Blood Negative Urine Nitrate Negative Urine Bilirubin Negative Urine Urobilinogen Normal Ur Leukocyte Esterase 1+ H Urine WBC (Auto) 15 H Urine RBC (Auto) 1 Ur Squamous Epith Cells 1 Urine Bacteria Few H Assessment & Plan - Assessment and Plan (Free Text) Assessment: IMP: Hydronephrosis Back pain Obesity DM Hypertension full note t/f - Date & Time Date: 03/21/17 Time: 10:26
[2017-03-21] MEDS: Pantoprazole 40 mg EC Tab PO SCH (11:01)
--- NOTE | 2017-03-22 01:47 | HP ---
HISTORY OF PRESENT ILLNESS: Patient is a 66-year-old female with history of multiple medical problems, presented to my office on the day of admission for right-sided flank and abdominal pain. Patient already had an emergency room visit for the same and she was found to have right hydronephrosis with no stone that could be seen. Patient was evaluated again in the emergency room where she again was found to have right hydronephrosis in abdominal ultrasound. Patient had Urology consultation done by Dr. Lofton and started on IV fluid and antibiotics and admitted for further management. Other review of system is negative. ALLERGIES: POSITIVE FOR PENICILLIN. PAST MEDICAL HISTORY: Hypertension, type 2 diabetes mellitus. SOCIAL HISTORY: No history of smoking, EtOH or substance abuse. FAMILY HISTORY: Not contributory. PHYSICAL EXAMINATION: GENERAL: Patient is in bed, not in any cardiopulmonary distress. VITAL SIGNS: Blood pressure 132/79, temperature 98.1, respiratory rate 20 and pulse 56. HEENT: Pupils equal, reactive to light. Normal-appearing mucosa of the conjunctivae, oropharynx, and nasal membrane mucosa. NECK: Supple. No JVD. No carotid bruit. No lymph node. No thyromegaly. CHEST AND LUNGS: Bilateral symmetrical expansion. Good air exchange. No rales, no rhonchi. CARDIOVASCULAR SYSTEM: PMI not localized. S1, S2. No additional sounds. ABDOMEN: Normoactive bowel sounds. No tenderness. No organomegaly. No masses. EXTREMITIES: No cyanosis, no clubbing, no edema. CENTRAL NERVOUS SYSTEM: Alert, awake, oriented x2. No neurological deficit could be appreciated. ASSESSMENT: 1. Right sided hydronephrosis with renal colic. 2. Type 2 diabetes mellitus. 3. Hypertension. PLAN: We will continue IV fluids, IV antibiotics. Drain all the urine. Urology consult and follow the recommendations. Diamond Garcia MD
[2017-03-22] MEDS: Sodium Chloride 0.9% 1,000 ML IV SCH ×3 (07:14→18:31)
[2017-03-22] MEDS: (Novolog) Insulin Aspart, Recombinant 100 u/ml 10 ml vial SC SCH ×4 (08:21→21:27)
[2017-03-22 08:58] LABS: BLOOD UREA NITROGEN 14 mg/dL (7-17); CALCIUM 8.8 mg/dl (8.6-10.4); GFR AFRICAN-AMERICAN > 60; GFR NON-AFRICAN AMERICAN > 60
[2017-03-22] MEDS: Pantoprazole 40 mg EC Tab PO SCH (09:51)
[2017-03-22] MEDS ORDERED: Influenza Vaccine 60 mcg/0.5 mL SYR (4YR UP) IM ONE (10:00)
[2017-03-22] MEDS ORDERED: Pneumococcal 23-Valent Vaccine IM ONE (10:00)
[2017-03-22 11:52] LABS: MEAN CELL VOLUME 78.8 fL (81.0-99.0); MEAN CORPUSCULAR HEMOGLOBIN 27.8 pg (27.0-31.0); MEAN CORPUSCULAR HGB CONC 35.2 g/dL (33.0-37.0); MEAN PLATELET VOLUME 8.1 fL (7.2-11.7); RBC 5.05 Mil/uL (3.80-5.20); RED CELL DISTRIBUTION WIDTH 13.9 % (11.5-14.5); WHITE BLOOD COUNT 8.8 K/uL (4.8-10.8)
[2017-03-22] MEDS: Ciprofloxacin 400mg/200ml D5W 400 MG/200 ML BAG IVPB SCH ×2 (12:01→22:47)
--- NOTE | 2017-03-23 00:23 | PCM.URO ---
Urology Progress Note - General General: Tolerating Diet - Subjective Abdominal Pain: No Flank Pain: Yes (L sided) Nausea: No Vomiting: No Voiding Well: Yes Dysuria: No Hematuria: No Good Stream: No Stone Passed: No Chest Pain: No - Objective Lab Studies: Reviewed Lab Results Last 24 Hours: Laboratory Results - last 24 hr 03/22/17 03/22/17 03/22/17 04:00 08:15 11:44 WBC 8.8 RBC 5.05 Hgb 14.0 Hct 39.8 MCV 78.8 L MCH 27.8 MCHC 35.2 RDW 13.9 Plt Count 199 MPV 8.1 Sodium 137 Potassium 4.0 Chloride 105 Carbon Dioxide 20 L Anion Gap 17 BUN 14 Creatinine 0.7 Est GFR ( Amer) > 60 Est GFR (Non-Af Amer) > 60 POC Glucose (mg/dL) 120 H Random Glucose 107 H Calcium 8.8 03/22/17 03/22/17 03/22/17 11:53 16:07 21:14 WBC RBC Hgb Hct MCV MCH MCHC RDW Plt Count MPV Sodium Potassium Chloride Carbon Dioxide Anion Gap BUN Creatinine Est GFR ( Amer) Est GFR (Non-Af Amer) POC Glucose (mg/dL) 140 H 91 110 Random Glucose Calcium Intake & Output: Intake & Output 03/22/17 03/22/17 03/23/17 06:59 18:59 06:59 Intake Total 2240 980 1600 Output Total 1000 Balance 8599 192 3956 Intake: Intake, IV Amount 2000 500 1000 Right Hand 2000 500 1000 Oral 240 480 600 Output: Urine 1000 Urine, Voided 1000 Other: # Voids Urine, Voided 3 1 # Bowel Movements 0 0 0 Vital Signs: Vital Signs - 24 hr 03/22/17 03/22/17 03/22/17 07:40 11:50 15:00 Temperature 98.4 F 98.2 F 98 F Pulse Rate 60 61 60 Respiratory 20 20 20 Rate Blood Pressure 140/90 127/81 155/92 H O2 Sat by Pulse 96 94 L 95 Oximetry 03/22/17 03/22/17 18:37 23:05 Temperature 98 F Pulse Rate 61 66 Respiratory 20 Rate Blood Pressure 145/89 125/74 O2 Sat by Pulse 95 Oximetry - Physical Exam Abdominal Exam: Soft, Non-Tender, Non-Distended Back: No CVA Tenderness Urine Color: Clear, Yellow - Plan Additional Information: Imp: clinically improved. Dilation of renal pelves, R> L, of uncertain significance, poss due to uretro-pelvic junction obstruction. Pyria. Rec: urine culture. Poss CT urogram. Poss diuretic renogram. Poss need for cysto, RTG pyelogram, acc to pt's clinical course. Will discuss with attending physician - Date & Time of Note Date: 03/22/17 Time: 11:30
--- NOTE | 2017-03-23 02:26 | PN ---
DATE: 03/22/2017 DAILY PROGRESS NOTE SUBJECTIVE: Patient is seen today, 03/22/2017. She stated that she has pain more in the left side today. PHYSICAL EXAMINATION: VITAL SIGNS: Blood pressure 145/89, temperature 98, respiratory rate 20 and pulse 61. HEENT: Pupils equal, reactive to light. Normal-appearing mucosa of the conjunctivae, oropharynx, and nasal membrane mucosa. NECK: Supple. No JVD. No carotid bruit. No lymph node. No thyromegaly. CHEST AND LUNGS: Bilateral symmetrical expansion. Good air exchange. No rales, no rhonchi. CARDIOVASCULAR SYSTEM: PMI not localized. S1, S2. No additional sounds. ABDOMEN: Normoactive bowel sounds. No tenderness. No organomegaly. No masses. EXTREMITIES: No cyanosis, no clubbing, no edema. CENTRAL NERVOUS SYSTEM: Alert, awake, oriented x2. No neurological deficit could be appreciated. ASSESSMENT: 1. Right lower quadrant pain with hydronephrosis that is today relieved and more on the left side. 2. Hypertension. 3. Type 2 diabetes mellitus. PLAN: Discussed patient's condition with Dr. Lofton who believed that the pain is not due to urinary calculi and hydronephrosis is probably due to chronic ureteropelvic junction stenosis with hydronephrosis. Continue pain management and current antibiotics and IV fluid. If patient remains pain free in the morning, we will discharge home. Diamond Garcia MD
[2017-03-23] MEDS: Sodium Chloride 0.9% 1,000 ML IV SCH ×3 (03:00→15:40)
[2017-03-23] MEDS: (Novolog) Insulin Aspart, Recombinant 100 u/ml 10 ml vial SC SCH ×3 (07:52→16:57)
[2017-03-23] MEDS: Pantoprazole 40 mg EC Tab PO SCH (09:11)
[2017-03-23] MEDS: Ciprofloxacin 400mg/200ml D5W 400 MG/200 ML BAG IVPB SCH (12:08)
--- NOTE | 2017-03-23 16:10 | CP.PCM.PN ---
Subjective - Date & Time of Evaluation Date of Evaluation: 03/23/17 Time of Evaluation: 16:10 Objective - Vital Signs/Intake and Output Vital Signs (last 24 hours): Temp Pulse Resp BP Pulse Ox 97.5 F L 75 20 143/75 98 03/23/17 07:00 03/23/17 09:09 03/23/17 09:09 03/23/17 09:09 03/23/17 09:09 Intake and Output: 03/23/17 03/23/17 06:59 18:59 Intake Total 1600 1480 Balance 1600 1480 - Medications Medications: Current Medications Aspirin (Aspirin Chewable) 81 mg PO DAILY [facility] Last Admin: 03/23/17 09:11 Dose: 81 mg Carvedilol (Coreg) 6.25 mg PO BID [facility] Last Admin: 03/23/17 09:11 Dose: 6.25 mg Sodium Chloride (Sodium Chloride 0.9%) 1,000 mls @ 125 mls/hr IV .Q8H [facility] Last Admin: 03/23/17 15:40 Dose: 125 mls/hr Ciprofloxacin (Cipro 400mg/200ml Dsw) 400 mg in 200 mls @ 133 mls/hr IVPB Q12H [facility] Last Admin: 03/23/17 12:08 Dose: 133 mls/hr Ibuprofen (Motrin Tab) 400 mg PO BID [facility] Last Admin: 03/23/17 09:11 Dose: 400 mg Insulin Aspart (Novolog) 0 unit SC ACHS [facility] PRN Reason: Protocol Last Admin: 03/23/17 12:00 Dose: Not Given Metformin HCl (Glucophage) 850 mg PO BID [facility] Last Admin: 03/23/17 09:10 Dose: 850 mg Morphine Sulfate (Morphine) 2 mg IVP Q4 PRN PRN Reason: Pain, moderate (4-7) Last Admin: 03/22/17 12:01 Dose: 2 mg Pantoprazole Sodium (Protonix Ec Tab) 40 mg PO DAILY [facility] Last Admin: 03/23/17 09:11 Dose: 40 mg Quetiapine Fumarate (Seroquel) 100 mg PO [facility] Last Admin: 03/22/17 21:03 Dose: 100 mg Rosuvastatin Calcium (Crestor) 5 mg PO [facility] Last Admin: 03/22/17 21:02 Dose: 5 mg - Labs Labs: 03/22/17 11:44 03/22/17 04:00 PT 11.1 SECONDS (9.7-12.2) 03/20/17 18:32 INR 1.0 03/20/17 18:32 APTT 29 SECONDS (21-34) 03/20/17 18:32
[2017-03-23] MEDS ORDERED: Influenza Vaccine 60 mcg/0.5 mL SYR (4YR UP) IM ONE (16:31)
[2017-03-23 16:40] VITALS: BP 110/55; PULSE 68; TEMP 98.5
[2017-03-24 13:10] VITALS: O2SAT 98
--- NOTE | 2017-03-24 14:42 | CON ---
DATE: 03/21/2017 UROLOGY CONSULTATION UROLOGY CONSULTATION IS REQUESTED BY: The emergency room physician as well as by Dr. Diamond Garcia. UROLOGY CONSULTATION FILLED BY: Awa Lofton MD REASON FOR CONSULTATION: Hydronephrosis. HISTORY OF PRESENT ILLNESS: The patient is a 66-year-old female with hydronephrosis. The patient is in otherwise fair health. The patient has history of diabetes. The patient has history of hypertension. The patient was admitted through ER with abdominal pain and back pain. The patient reports bilateral back pain. There has been no hematuria. No dysuria. No recent fever or rigors. The patient voids with urinary frequency. She has good urinary stream. The patient has good urinary control. Ms. Baumann reports no history of previous urolithiasis. No nausea or vomiting. The patient does have bilateral back pain. She reports the pain involves the mid back as well. The patient reports that the pain involves the lower back more than the upper back. The patient had . PHYSICAL EXAMINATION: GENERAL: The patient is a well-developed, well-nourished, overweight female, appearing her stated age. ABDOMEN: Soft, nontender, mildly protuberant. Nondistended. BACK: No CVA tenderness. LABORATORY DATA: Reviewed. Pyuria is noted. Chemistries and CBC reviewed. CT scan is reviewed as well. There is fullness of the renal pelvis. There is no significant caliectasis. There is good preservation of renal cortex. No stones were identified. The renal pelvis dilated bilaterally right more than left. IMPRESSION: Dilated renal pelvis. Possible hydronephrosis. Pyuria. Back pain. Hypertension. Diabetes. Etiology of the back pain maybe due to renal disease, also may be due to musculoskeletal disease. The patient appears stable at present. RECOMMENDATIONS AND PLAN: Monitor renal function. Monitor clinical course. Consider diuretic renogram to evaluate for possible renal obstruction. Urine culture. Further therapy to follow according to the results of the above as well as the patient's clinical course. I will discuss further with the attending physician. Thank you for recommending the patient for urology consultation. Awa Lofton MD cc: Diamond Garcia MD [facility] # [id number]
--- NOTE | 2017-03-24 21:28 | DS ---
REASON FOR ADMISSION: This is a 66-year-old female, who was admitted for right-sided abdominal and pelvic pain with CT scan and ultrasound finding of hydronephrosis. COURSE OF HOSPITALIZATION: The patient was admitted to medical floor and she was started on IV fluid and IV antibiotics. The patient had Urology consult with Dr. Awa Lofton. The thought was that patient did not have stones as there is no calculus that could be seen in the imaging studies and the patient had chronic ureteropelvic junction narrowing with some hydronephrosis and normal kidney function. Pain was believed to be due to back pain and musculoskeletal origin due to degenerative spine disease with radicular pain. FINAL DIAGNOSES: 1. Degenerative spine disease with radicular pain. 2. Hydronephrosis likely chronic due to ureteropelvic junction stenosis with normal renal function. 3. Type 2 diabetes mellitus. 4. Hypertension. [facility] MD Jose
== END 2017-03-23 17:30 | disposition home or self-care (01) | DRG 694 ==
LOC: C.ER 14:19 → C.9E 19:06 → C.3T 22:36 → OBSVTOIN 03-21 15:16 → C.5S 03-22 11:14
PROVIDERS: ADMIT Internal Medicine; ATTEND Internal Medicine
DX: N13.39 Other hydronephrosis (principal); E66.01 Morbid (severe) obesity due to excess calories; G31.89 Other specified degenerative diseases of nervous system; Q62.11 Congenital occlusion of ureteropelvic junction; F20.9 Schizophrenia, unspecified; I10 Essential (primary) hypertension; E03.9 Hypothyroidism, unspecified; E11.9 Type 2 diabetes mellitus without complications; M19.90 Unspecified osteoarthritis, unspecified site; E78.00 Pure hypercholesterolemia, unspecified; G43.909 Migraine, unspecified, not intractable, without status migrainosus; M81.0 Age-related osteoporosis without current pathological fracture; Z68.36 Body mass index [BMI] 36.0-36.9, adult; Z79.4 Long term (current) use of insulin

== ENCOUNTER 2017-04-10 06:18 | Day surgery (SDC) | payer OTHER ==
[2017-04-10] MEDS ORDERED: Iohexol 240 (50 ml) ONE (07:36)
[2017-04-10] MEDS ORDERED: Lidocaine 2% Jelly (Uro-Jet) ONE (07:36)
[2017-04-10] MEDS ORDERED: Propofol 10 mg/ml Inj (20 ML) ONE (07:47)
[2017-04-10] MEDS ORDERED: Ciprofloxacin 400mg/200ml D5W 400 MG/200 ML BAG IVPB ONE (07:51)
[2017-04-10] MEDS ORDERED: HYDROmorphone 0.5 mg/0.5 ml ISec IVP PRN (08:44)
--- NOTE | 2017-04-10 08:55 | PCM.SURG1 ---
Surgeon's Initial Post Op Note - Surgeon's Notes Surgeon: Shane Lofton Lockstitch Machine Operator: none Type of Anesthesia: General LMA Pre-Operative Diagnosis: R Hydronephrosis Operative Findings: same. cystitis. cystocele Post-Operative Diagnosis: same Operation Performed: cysto. bilst rtg pyelogram. bladder bx and fulg. fulg of BN. eua Specimen/Specimens Removed: urine. bladder bx Estimated Blood Loss: EBL {In ML}: 0 Blood Products Given: N/A Drains Used: No Drains Date of Surgery/Procedure: 04/10/17 Time of Surgery/Procedure: 08:40
[2017-04-10] MEDS ORDERED: Gentamicin 80 mg in 0.9% NS 80 MG/100 ML BAG IVPB ONE (09:00)
[2017-04-10 11:05] VITALS: BP 97/55; PULSE 58; RESP 18; TEMP 97.3; O2SAT 96
--- NOTE | 2017-04-10 11:40 | OP ---
PROCEDURE DATE: PREOPERATIVE DIAGNOSIS: Right hydronephrosis. POSTOPERATIVE DIAGNOSES: Right hydronephrosis. Cystitis. Cystocele. PROCEDURES: Cystoscopy. Bilateral retrograde pyelogram. Bladder biopsy and fulguration. Fulguration of bladder neck. Exam under anesthesia. SURGEON: Dr. Awa Lofton. DESCRIPTION OF PROCEDURE: Procedure as follows; The patient received perioperative antibiotics. The patient was placed in lithotomy position. Anesthesia was applied by the anesthesiologist. Genitalia prepped and sterilely. A 22-Somali cystoscope sheath was introduced with obturator. Urine from the bladder was drained and sent for bacteriologic examination. The residual within the bladder was 50 mL. The bladder was inspected 30 degree and 70 degree lenses. FINDINGS: There was no bladder tumor. There was no bladder stone. There was mild bladder trabeculation. There was [id number] bladder inflammation. There was some focal areas of increased erythema on the posterior wall. The ureteral orifice were identified bilaterally. Occlusive tip retrograde ureteropyelogram was performed. Iodinated contrast dye was instilled via cone tip catheter into each ureteral orifice. The ureters and the kidney were viewed sequentially. FINDINGS: The there was no evidence of ureteral obstruction or filling defect. There was evidence of a mild right ureteropelvic junction obstruction with mild dilation of the pelvis. There was slight caliectasis on the right which improved on the post drainage film. There was some residual contrast in the pelvis on the post drainage film. On the left side, the ureter and kidneys were normal. There was no evidence of filling defect or obstruction. There was complete drainage on the post drainage fluoroscopic view. The area of the abnormal bladder mucosa was biopsied using cold cup biopsy forceps. Fulguration was performed with Ball electrode and electrocautery. Hemostasis was complete. There was mild contact bleeding of the mucosa at the bladder neck. This area was fulgurated as well. The bladder was reinspected with 70 degrees lens. The findings were confirmed as noted above. There was no bladder tumor. There was no bladder stone. The bladder was then drained. Cystoscope sheath removed. Exam under anesthesia was performed. There was mild cystocele. There was mild rectocele. There was no abnormal pelvic mass fixation or induration. There was no adnexal mass. The uterus was not palpable. The patient tolerated procedure without complication. Awa MD Kirsty cc: Diamond Garcia MD. [facility] # [id number]
--- NOTE | 2017-04-10 15:39 | RAD ---
HISTORY: HYDRONEPHROSIS COMPARISON: No prior. FINDINGS: BOWEL: Normal. No obstruction. No free air. BONES: Normal. OTHER FINDINGS: None. IMPRESSION: No significant or acute findings to account for/ related to the clinical presentation.
--- NOTE | 2017-04-10 15:41 | RAD ---
PROCEDURE: Intraoperative Fluoroscopy. HISTORY: HYDRONEPHROSIS FINDINGS: Fluoroscopic assistance was provided for bilateral retrograde. Total fluoroscopic time (continuous mode) utilized during the procedure: 9.2 seconds.. Please refer to the operative report from Dr. LACY, [place]. Submitted images from the current procedure: 8.0
== END 2017-04-10 11:15 | disposition home or self-care (01) ==
LOC: C.SDS 06:18
PROVIDERS: ATTEND Urology
DX: N13.30 Unspecified hydronephrosis (principal); N81.10 Cystocele, unspecified; N30.90 Cystitis, unspecified without hematuria; N32.89 Other specified disorders of bladder
CPT/HCPCS: 52204; 74018; 82948; 87086; 88104; 88305; J0744; J1580; Q9966